=== PATIENT | male | born 1985 | race Caucasian/White ===

== ENCOUNTER → 2019-08-31 | Outpatient (CLI) | payer OTHER ==
--- NOTE | 2019-08-31 17:49 | REP ---
MRI LEFT HUMERUS WITHOUT CONTRAST: TECHNIQUE: Multiple sequences were obtained in the axial, coronal, and sagittal planes. No IV contrast was administered. The humerus itself demonstrates normal bone marrow signal. There is no bone marrow edema or occult fracture. There is an area of ill-defined edema involving the long head of the triceps muscle at the level of the mid humerus consistent with a partial tear. There is adjacent superficial soft-tissue edema. The medial and lateral heads of the triceps muscle do not demonstrate abnormal signal. I do not see abnormal signal within the distal triceps tendon. The other muscular structures of the upper arm appear unremarkable with no abnormal signal. Biceps muscle and tendon demonstrate no abnormal signal. IMPRESSION: Findings consistent with a partial tear of the long head of the triceps muscle at the level of the mid humerus. No other muscle tear. Electronically Signed by Milton Ornelas MD 09/01/2019 05:47 P
== END ==
LOC: M RAD 15:52
PROVIDERS: ATTEND Family Medicine
DX: M79.602 Pain in left arm (principal)

== ENCOUNTER 2021-04-03 08:17 | Day surgery (SDC) | payer OTHER ==
[~2021-04-03] VITALS: Ht 170.2 cm; Wt 81.6 kg
[~2021-04-03 08:17] MED LIST: NS 1,000 ML IV ONE; THERTAB52 PO
[2021-04-03] MEDS ORDERED: propofoL 200 MG/20 ML VIAL As Ordered ONE (09:09)
[2021-04-03] MEDS ORDERED: LIDOCAINE 2% MDV 20ML VIAL As Ordered ONE (09:09)
--- NOTE | 2021-04-03 09:32 | ROOR ---
Patient Name: Mihir Gomez Procedure Date: 04/03/2021 9:07 AM Date of : 1985 Age: 35 Room: [facility] [place] Gender: Male Note Status: Finalized Procedure: Total Colonoscopy to Cecum Indications: Follow-up of diverticulitis Providers: Venancio Bridges MD Referring MD: David Anders Requesting Provider: Medicines: Monitored Anesthesia Care Complications: No immediate complications. Procedure: Pre-Anesthesia Assessment: - The heart rate, respiratory rate, oxygen saturations, blood pressure, adequacy of pulmonary ventilation, and response to care were monitored throughout the procedure. The Colonoscope was introduced through the anus and advanced to the cecum, identified by the appendiceal orifice, IC valve and transillumination. The colonoscopy was performed without difficulty. The patient tolerated the procedure well. The quality of the bowel preparation was excellent. Findings: The perianal and digital rectal examinations were normal. Non-bleeding internal hemorrhoids were found during retroflexion. The hemorrhoids were small and Grade I (internal hemorrhoids that do not prolapse). Scattered small-mouthed diverticula were found in the recto-sigmoid colon and sigmoid colon. The exam was otherwise without abnormality on direct and retroflexion views. Impression: - Non-bleeding internal hemorrhoids. - Diverticulosis in the recto-sigmoid colon and in the sigmoid colon. - The examination was otherwise normal on direct and retroflexion views. - No specimens collected. - The exam was otherwise normal to the cecum. Recommendation: - Patient has a contact number available for emergencies. The signs and symptoms of potential delayed complications were discussed with the patient. Return to normal activities tomorrow. Written discharge instructions were provided to the patient. - High fiber diet. - Discharge patient to home. - Continue present medications. - Repeat colonoscopy at age 50 for screening purposes. - Return to referring physician. - The findings and recommendations were discussed with the patient. Procedure Code(s): --- Professional --- 62069, Colonoscopy, flexible; diagnostic, including collection of specimen(s) by brushing or washing, when performed (separate procedure) Diagnosis Code(s): --- Professional --- K64.0, First degree hemorrhoids K57.32, Diverticulitis of large intestine without perforation or abscess without bleeding K57.30, Diverticulosis of large intestine without perforation or abscess without bleeding CPT copyright 2019 [employer]. All rights reserved. The codes documented in this report are preliminary and upon mammalogist review may be revised to meet current compliance requirements. Venancio Bridges MD Venancio Bridges MD 04/03/2021 9:32:07 AM Electronically signed by Venancio Bridges MD Number of Addenda: 0 Note Initiated On: 04/03/2021 9:07 AM Estimated Blood Loss: Estimated blood loss: none.
[2021-04-03 09:45] VITALS: BP 123/79
== END 2021-04-03 09:57 | disposition home or self-care (01) ==
LOC: M OPP 08:17
PROVIDERS: ATTEND Internal Medicine Gastroenterology
DX: K57.30 Diverticulosis of large intestine without perforation or abscess without bleeding (principal); K64.0 First degree hemorrhoids

== ENCOUNTER → 2022-02-21 | Outpatient (REF) | payer OTHER ==
[~2022-02-21] MED LIST changes: -NS 1,000 ML IV ONE
[2022-02-21 14:26] LABS: SEMEN APPEARANCE OPAQUE (OPAQUE); SEMEN VISCOSITY LIQUID (LIQUID)
[2022-02-21 14:27] LABS: SPERM CONCENTRATION 33.9 M/ml (>=15.0); WBC CONCENTRATION <=1 M/ml (<=1 M/ml)
== END ==
LOC: M LAB REF 14:23
DX: Z31.41 Encounter for fertility testing (principal)

== ENCOUNTER → 2022-05-20 | Outpatient (CLI) | payer OTHER ==
[~2022-05-20] MED LIST changes: +ISOVUE-300 61% 50ML VIAL As Ordered ONE; +LIDOCAINE 1% MDV 20ML VIAL As Ordered ONE; +PROHANCE 279.3MG/ML 5ML VIAL As Ordered ONE
== END ==
LOC: M RADPRO 06:35
PROVIDERS: ATTEND Physician Assistant Surgical
DX: R93.7 Abnormal findings on diagnostic imaging of other parts of musculoskeletal system (principal); M24.112 Other articular cartilage disorders, left shoulder
CPT/HCPCS: 23350; 73223; 77002; A9576; Q9967